=== PATIENT | male | born 1975 | race Caucasian/White ===

== ENCOUNTER 2023-11-26 19:29 | Emergency (ER) | payer OTHER ==
[~2023-11-26] VITALS: Ht 167.6 cm; Wt 45.4 kg
[2023-11-26] MEDS: ONDANSETRON 4MG 2ML VIAL IV ONE (20:23)
[2023-11-26] MEDS: NS 1,000 ML IV ONE (20:23)
[2023-11-26] MEDS: PANTOPRAZOLE 40MG VIAL IV ONE (20:23)
[2023-11-26 20:28] LABS: BASO % 0.2 % (0.0-1.0); HEMATOCRIT 46.5 % (42.0-52.0); HEMOGLOBIN 16.3 g/dl (13.5-17.5); LYMPH # 1.1 10^3/uL (1.5-5.0); LYMPH % 7.6 % (24.0-44.0); MEAN CORPUSCULAR HEMOGLOBIN 31.8 pg (27.0-33.0); MEAN CORPUSCULAR HGB CONC 35.1 g/dl (32.0-36.5); MEAN CORPUSCULAR VOLUME 90.6 fl (80.0-96.0); MONO # 0.5 10^3/uL (0.0-0.8); MONO % 3.3 % (2.0-8.0); NEUTROPHILS # 12.5 10^3/uL (1.5-8.5); NEUTROPHILS % 88.5 % (36.0-66.0); PLATELET COUNT, AUTOMATED 430 10^3/uL (150-450); RED BLOOD COUNT 5.13 10^6/uL (4.30-6.10); WHITE BLOOD COUNT 14.1 10^3/uL (4.0-10.0)
[2023-11-26 20:57] LABS: LIPASE 18 U/L (12-53)
[2023-11-26 20:59] LABS: ALBUMIN 3.7 G/DL (3.2-5.2); ALKALINE PHOSPHATASE 158 U/L (46-116); ALT/SGPT 12 U/L (7.0-40); AST/SGOT 13 U/L (<34); BILIRUBIN,DIRECT 0.1 MG/DL (<0.4); BILIRUBIN,TOTAL 0.5 MG/DL (0.3-1.2); BLOOD UREA NITROGEN 11 MG/DL (9-23); CALCIUM LEVEL 8.9 MG/DL (8.5-10.1); CARBON DIOXIDE LEVEL 29 MMOL/L (20-31); CHLORIDE LEVEL 105 MMOL/L (98-107); CREATININE FOR GFR 0.89 MG/DL (0.70-1.30); GLOMERULAR FILTRATION RATE > 60.0 (>60); GLUCOSE, FASTING 131 MG/DL (60-100); POTASSIUM SERUM 3.3 MMOL/L (3.5-5.1); SODIUM LEVEL 144 MMOL/L (136-145); TOTAL PROTEIN 7.1 G/DL (5.7-8.2)
[2023-11-26] MEDS: METOCLOPRAMIDE INJ 10MG/2ML VIAL IV ONE (21:31)
[2023-11-26] MEDS: KETOROLAC 30 MG/ML 1ML VIAL IV ONE (21:31)
[2023-11-26 23:04] LABS: CK-MB VALUE MASS < 1.0 NG/ML (<3.6)
[2023-11-26 23:10] LABS: CPK CREATINE PHOSPHOKINASE 55 U/L (46-171); MB/CK RELATIVE INDEX 1.81 (< OR =4)
[2023-11-26] MEDS: ASPIRIN 81MG CHEW TABLET PO ONE (23:24)
[2023-11-26 23:42] VITALS: TEMP 98.8
[2023-11-27] MEDS: NITROGLYCERIN 0.4MG SUBL TABLET SL PRN (00:03)
[2023-11-27 00:10] LABS: CK-MB VALUE MASS < 1.0 NG/ML (<3.6)
[2023-11-27 00:18] LABS: CPK CREATINE PHOSPHOKINASE 51 U/L (46-171); MB/CK RELATIVE INDEX 1.96 (< OR =4)
[2023-11-27 00:24] LABS: INR 1.02; PARTIAL THROMBOPLASTIN TIME 34.4 SECONDS (24.8-34.2); PROTHROMBIN TIME 13.1 SECONDS (12.5-14.5)
[2023-11-27] MEDS: MORPHINE 2 MG/ML 1ML VIAL IV ONE ×2 (00:29→03:16)
[2023-11-27] MEDS: HEPARIN DRIP 25,000 UNITS in IV 1 EA IV SCH (00:34)
[2023-11-27] MEDS: HEPARIN SOD (PORCINE) 5000UNITS/ML 1ML VIAL/SYRINGE IV ONE (00:35)
[2023-11-27 01:33] VITALS: BP 162/96
[2023-11-27] MEDS: POTASSIUM CHLORIDE 10MEQ SR TABLET PO ONE (02:34)
[2023-11-27 03:16] VITALS: BP 150/88; O2SAT 96
== END 2023-11-27 03:19 | disposition short-term general hospital (02) ==
LOC: M ED 19:29
DX: I21.4 Non-ST elevation (NSTEMI) myocardial infarction (principal); K59.00 Constipation, unspecified; F17.200 Nicotine dependence, unspecified, uncomplicated; Z88.0 Allergy status to penicillin; Z88.5 Allergy status to narcotic agent
CPT/HCPCS: 74021; 80053; 81001; 82248; 82550; 82553; 83690; 84484; 85025; 85610; 85730; 93005; 93041; 96361; 96374; 96375; 96376; 99285; C9113; J1885; J2405; J2765

== ENCOUNTER 2024-02-18 13:08 | Emergency (ER) | payer OTHER ==
[~2024-02-18] VITALS: Ht 167.6 cm; Wt 44.5 kg
[2024-02-18 13:10] VITALS: TEMP 97.8
[2024-02-18 14:18] LABS: BASO % 0.3 % (0.0-1.0); HEMATOCRIT 43.1 % (42.0-52.0); HEMOGLOBIN 14.8 g/dl (13.5-17.5); LYMPH # 1.5 10^3/uL (1.5-5.0); LYMPH % 14.7 % (24.0-44.0); MEAN CORPUSCULAR HEMOGLOBIN 31.2 pg (27.0-33.0); MEAN CORPUSCULAR HGB CONC 34.3 g/dl (32.0-36.5); MEAN CORPUSCULAR VOLUME 90.9 fl (80.0-96.0); MONO # 0.4 10^3/uL (0.0-0.8); MONO % 4.1 % (2.0-8.0); NEUTROPHILS # 7.9 10^3/uL (1.5-8.5); NEUTROPHILS % 80.6 % (36.0-66.0); PLATELET COUNT, AUTOMATED 367 10^3/uL (150-450); RED BLOOD COUNT 4.74 10^6/uL (4.30-6.10); WHITE BLOOD COUNT 9.9 10^3/uL (4.0-10.0)
[2024-02-18] MEDS: MORPHINE 4 MG/ML 1ML VIAL IV PRN (14:24)
[2024-02-18] MEDS: ONDANSETRON 4MG 2ML VIAL IV ONE (14:24)
[2024-02-18] MEDS: ASPIRIN 81MG CHEW TABLET PO ONE (14:24)
[2024-02-18] MEDS: NS 1,000 ML IV ONE (14:25)
[2024-02-18 14:46] LABS: LIPASE 17 U/L (12-53)
[2024-02-18 14:48] LABS: ALBUMIN 3.4 G/DL (3.2-5.2); ALKALINE PHOSPHATASE 126 U/L (46-116); ALT/SGPT 16 U/L (7.0-40); AST/SGOT 17 U/L (<34); BILIRUBIN,DIRECT < 0.1 MG/DL (<0.4); BILIRUBIN,TOTAL 0.3 MG/DL (0.3-1.2); BLOOD UREA NITROGEN 8 MG/DL (9-23); CALCIUM LEVEL 8.6 MG/DL (8.5-10.1); CARBON DIOXIDE LEVEL 26 MMOL/L (20-31); CHLORIDE LEVEL 111 MMOL/L (98-107); CK-MB VALUE MASS < 1.0 NG/ML (<3.6); CREATININE FOR GFR 1.04 MG/DL (0.70-1.30); GLOMERULAR FILTRATION RATE > 60.0 (>60); GLUCOSE, FASTING 103 MG/DL (60-100); POTASSIUM SERUM 3.8 MMOL/L (3.5-5.1); SODIUM LEVEL 140 MMOL/L (136-145); TOTAL PROTEIN 6.6 G/DL (5.7-8.2)
[2024-02-18 14:51] LABS: CPK CREATINE PHOSPHOKINASE 53 U/L (46-171); MB/CK RELATIVE INDEX 1.88 (< OR =4)
[2024-02-18 15:55] LABS: CK-MB VALUE MASS < 1.0 NG/ML (<3.6)
[2024-02-18 15:59] LABS: CPK CREATINE PHOSPHOKINASE 56 U/L (46-171); MB/CK RELATIVE INDEX 1.78 (< OR =4)
[2024-02-18] MEDS: PROMETHAZINE 25MG/ML 1ML VIAL IV ONE (16:46)
[2024-02-18 16:47] VITALS: BP 171/107
[2024-02-18] MEDS: cloNIDine 0.1MG TABLET PO ONE (16:47)
[2024-02-18 17:35] LABS: CK-MB VALUE MASS < 1.0 NG/ML (<3.6)
[2024-02-18 17:59] LABS: CPK CREATINE PHOSPHOKINASE 44 U/L (46-171); MB/CK RELATIVE INDEX 2.27 (< OR =4)
[2024-02-18] MEDS: METOCLOPRAMIDE INJ 10MG/2ML VIAL IV ONE (18:27)
[2024-02-18 18:30] VITALS: O2SAT 99
[2024-02-18 18:39] VITALS: BP 182/108
== END 2024-02-18 18:56 | disposition left against medical advice (07) ==
LOC: M ED 13:08
DX: R07.9 Chest pain, unspecified (principal); R11.2 Nausea with vomiting, unspecified; Z53.9 Procedure and treatment not carried out, unspecified reason; I25.2 Old myocardial infarction; E78.5 Hyperlipidemia, unspecified; F41.9 Anxiety disorder, unspecified; F32.9 Major depressive disorder, single episode, unspecified; Z95.5 Presence of coronary angioplasty implant and graft; Z88.0 Allergy status to penicillin; Z88.5 Allergy status to narcotic agent
CPT/HCPCS: 71045; 80048; 80076; 82550; 82553; 83690; 84484; 85025; 93005; 93041; 94760; 96374; 96375; 96376; 99285; J2405; J2550; J2765